=== PATIENT | female | born 1970 | race Caucasian/White ===

== ENCOUNTER 2021-02-27 16:32 | Emergency (ER) | payer SELFPAY ==
[~2021-02-27] VITALS: Ht 165.1 cm; Wt 65.6 kg
[2021-02-27 16:33] VITALS: BP 122/69
[2021-02-27] MEDS ORDERED: HYDR-3363 PO (16:47)
[2021-02-27] MEDS ORDERED: LAMO100T80 PO (16:47)
[2021-02-27] MEDS ORDERED: HYDR200T3 PO (16:47)
[2021-02-27] MEDS ORDERED: WELLTAB38 PO (16:47)
[2021-02-27] MEDS ORDERED: SERO200T PO (16:47)
[2021-02-27] MEDS ORDERED: HORI600T PO (17:40)
[2021-02-27] MEDS ORDERED: CVS1CRE47 TOP (17:41)
== END 2021-02-27 18:17 | disposition home or self-care (01) ==
LOC: M ED 16:32 → EDBD 16:32 → M ED 18:17
DX: B02.39 Other herpes zoster eye disease (principal); F20.9 Schizophrenia, unspecified; F33.9 Major depressive disorder, recurrent, unspecified; Z98.84 Bariatric surgery status; Z88.5 Allergy status to narcotic agent; Z79.899 Other long term (current) drug therapy